=== PATIENT | female | born 1955 | race Caucasian/White ===

== ENCOUNTER 2024-05-18 11:55 | Emergency (ER) | payer MEDICARE, OTHER ==
[2024-05-18 12:05] VITALS: RESP 18; TEMP 97.5
--- NOTE | 2024-05-18 12:21 | ED ---
General Adult HPI - General Chief complaint: Extremity Injury, Lower Stated complaint: Right foot injury Time Seen by Provider: 05/18/24 12:06 Source: patient Mode of arrival: ambulatory Limitations: no limitations - History of Present Illness Initial comments: Dictation was produced using conXt dictation software. please excuse any grammatical, word or spelling errors. Chief Complaint: 68-year-old female presents to the emergency department with a right toe pain History of Present Illness: Patient 68-year-old female presents to the emergency department with right foot pain. Patient states that she has extensive history of what sounds like fungal toe infection. She states that years ago she had her nail on her right great toe turned black. She seen a pacs specialist for it states that her toenail should scroll out. Patient is visiting from [place] where she is staying at a family member's [facility]. The last couple days she has had drainage coming from the medial soft tissue from her right great toe. States that over the last couple days there was some pain to her right toe which spread to the MTP joint. Patient Nuys any fever, chills or night sweats. States that she soaked her toe and there was some drainage of pus. She went to the emergency department in [place] yesterday where she was prescribed Keflex. No imaging or blood work was done at that time. The ROS documented in this emergency department record has been reviewed and confirmed by me. Those systems with pertinent positive or negative responses have been documented in the HPI. All other systems are other negative and/or noncontributory. - Related Data Previous Rx's Medication Instructions Recorded HYDROcodone/APAP 5-325MG [Baring 1 tab PO Q6HR PRN 3 Days #12 tab 05/18/24 5-325] Allergies Allergy/AdvReac Type Severity Reaction Status Date / Time lisinopril Allergy Rash/Hives Verified 05/18/24 12:03 morphine Allergy Itching Verified 05/18/24 12:03 Review of Systems ROS Statement: Those systems with pertinent positive or pertinent negative responses have been documented in the HPI. ROS Other: All systems not noted in ROS Statement are negative. Past Medical History Past Medical History: Asthma, Thyroid Disorder History of Any Multi-Drug Resistant Organisms: None Reported Additional Past Surgical History / Comment(s): lymph edema surgery, Past Psychological History: No Psychological Hx Reported Smoking Status: Never smoker Past Alcohol Use History: Occasional Past Drug Use History: None Reported General Exam - General Exam Comments Initial Comments: General: Well-appearing, nontoxic, no acute distress. Head: Normocephalic, atraumatic Eyes: PERRLA, EOMI ENT: Airway patent Chest: Nonlabored breathing Skin: No visual rash, normal skin tone Neuro: Alert and oriented 3 Musculoskeletal: No gross abnormalities Right foot: Pain and erythema to the right MTP and right toe, fungal hypertrophy of the right great toe nail, no area of fluctuance to the nailbed. No palpatory tenderness to the pad of the right great toe Limitations: no limitations Course Vital Signs 05/18/24 05/18/24 11:57 13:36 Temperature 97.5 F L Pulse Rate 87 15 L Respiratory 18 18 Rate Blood Pressure 133/63 134/68 O2 Sat by Pulse 98 98 Oximetry Medical Decision Making - Medical Decision Making Was pt. sent in by a medical professional or institution (, PA, LINE CLEARANCE FOREMAN, urgent care, hospital, or retirement...) When possible be specific @ -No Did you speak to anyone other than the patient for history (EMS, parent, family, police, friend...)? What history was obtained from this source @ -No Did you review nursing and triage notes (agree or disagree)? Why? @ -I reviewed and agree with nursing and triage notes Were old charts reviewed (outside hosp., previous admission, EMS record, old EKG, old radiological studies, urgent care reports/EKG's, retirement records)? Report findings @ -No old charts were reviewed Differential Diagnosis (chest pain, altered mental status, abdominal pain women, abdominal pain men, vaginal bleeding, musculoskeletal, weakness, fever, dyspnea, syncope, headache, dizziness, GI bleed, back pain, seizure, CVA, palpatations, mental health)? @ -Paronychia, gout, cellulitis EKG interpreted by me (3pts min.). @ -None done X-rays interpreted by me (1pt min.). @ -Pending CT interpreted by me (1pt min.). @ -None done U/S interpreted by me (1pt. min.). @ -None done What testing was considered but not performed or refused? (CT, X-rays, U/S, lab s)? Why? @ -None What meds were considered but not given or refused? Why? @ -None Was smoking cessation discussed for >3mins.? @ -No Were there social determinants of health that impacted care today? How? (Homelessness, low income, unemployed, alcoholism, drug addiction, transportation, low edu. Level, literacy, decrease access to med. care, correction, rehab)? @ -No Was there de-escalation of care discussed even if they declined (Discuss DNR or withdrawal of care, Hospice)? DNR status @ -No What co-morbidities impacted this encounter? (DM, HTN, Smoking, COPD, CAD, Cancer, CVA, ARF, Chemo, Hep., AIDS, mental health diagnosis, sleep apnea, morbid obesity)? @ -None Was patient admitted / discharged? Hospital course, mention meds given and route, prescriptions, significant lab abnormalities, going to OR and other pertinent info. @ -68-year-old female presents emergency department for what she describes as infection of the right MTP and right toe. Vital signs stable. Patient Nuys any constitutional symptoms. Patient has erythematous skin at the area of the right MTP and right toe. Laboratory evaluation obtained. Mild leukocytosis 13.5. Potassium 5.7 with hemolysis. Mild acidosis with a bicarb of 17. CRP is 2.5. There does not appear to be any draining wound. I believe that Keflex is a reasonable antibiotic. Patient given a dose of ceftriaxone. Patient offered observation admission for medical monitoring. She would prefer to be discharged with some pain medications. They will head back to [place] tomorrow and follow-up closely with primary care doctor. Discussed what symptoms should trigger seeking immediate medical attention. They are agreeable with plan. Did you discuss the management of the patient with other professionals (professionals i.e. , PA, [employer] CLEARANCE FOREMAN, lab, RT, psych nurse, transition social worker, pearl stringer, teacher, parking enforcement officer, protective services case worker)? Give summary @ -No Was critical care preformed (if so, how long)? @ -No Undiagnosed new problem with uncertain prognosis? @ -No Drug Therapy requiring intensive monitoring for toxicity (Heparin, Nitro, Insulin, Cardizem)? @ -No Were any procedures done? @ -No Diagnosis/symptom? Acute, or Chronic, or Acute on Chronic? Uncomplicated (without systemic symptoms) or Complicated (systemic symptoms)? @ -Foot cellulitis Side effects of treatment? @ -No Exacerbation, Progression, or Severe Exacerbation? @ -No Poses a threat to life or bodily function? How? (Chest pain, [place], [place], pneumonia, PE, COPD, DKA, ARF, appy, cholecystitis, CVA, Diverticulitis, Homicidal, Suicidal, threat to staff... and all critical care pts) @ -No - Lab Data Result diagrams: 05/18/24 12:52 05/18/24 12:52 Lab Results 05/18/24 05/18/24 Range/Units 12:52 12:52 WBC 13.5 H (3.8-10.6) k/uL RBC 4.94 (3.80-5.40) m/uL Hgb 14.2 (11.4-16.0) gm/dL Hct 47.1 H (34.0-46.0) % MCV 95.4 (80.0-100.0) fL MCH 28.9 (25.0-35.0) pg MCHC 30.3 L (31.0-37.0) g/dL RDW 12.9 (11.5-15.5) % Plt Count 250 (150-450) k/uL MPV 7.7 Neutrophils % 72 % Lymphocytes % 17 % Monocytes % 6 % Eosinophils % 2 % Basophils % 1 % Neutrophils # 9.6 H (1.3-7.7) k/uL Lymphocytes # 2.3 (1.0-4.8) k/uL Monocytes # 0.8 (0-1.0) k/uL Eosinophils # 0.3 (0-0.7) k/uL Basophils # 0.1 (0-0.2) k/uL Sodium 136 L (137-145) mmol/L Potassium 5.7 H (3.5-5.1) mmol/L Chloride 107 (98-107) mmol/L Carbon Dioxide 17 L (22-30) mmol/L Anion Gap 12 mmol/L BUN 19 H (7-17) mg/dL Creatinine 0.51 L (0.52-1.04) mg/dL Est GFR (CKD-EPI)AfAm >90 (>60 ml/min/1.73 sqM) Est GFR (CKD-EPI)NonAf >90 (>60 ml/min/1.73 sqM) Glucose 91 (74-99) mg/dL Calcium 9.1 (8.4-10.2) mg/dL C-Reactive Protein 2.5 H (<1.0) mg/dL Disposition Clinical Impression: Cellulitis of foot Disposition: HOME SELF-CARE Condition: Fair Instructions (If sedation given, give patient instructions): Cellulitis (ED) Prescriptions: HYDROcodone/APAP 5-325MG [Baring 5-325] 1 tab PO Q6HR PRN 3 Days #12 tab PRN Reason: Severe Pain Is patient prescribed a controlled substance at d/c from ED?: Yes If prescribed controlled substance>3 days was MAPS reviewed?: Prescribed <3 Days Referrals: Nonstaff,Physician [Primary Care Provider] - 1-2 days Time of Disposition: 14:24
[2024-05-18] MEDS: KETOROLAC 15 MG/ML 1 ML VIAL IVP STA (12:46)
--- NOTE | 2024-05-18 13:11 | XR ---
EXAMINATION TYPE: XR foot limited RT DATE OF EXAM: 05/18/2024 COMPARISON: None HISTORY: Redness swelling pain. Right foot TECHNIQUE: 3 view right foot FINDINGS: First metatarsophalangeal joint space degenerative changes are present. Soft tissue swellin g over the dorsum of the foot. No acute fractures or dislocations evident. Joint spaces otherwise appear preserved. Follow up exams can be performed 7-10 days from acute trauma for continued pain. IMPRESSION: 1. No acute osseous abnormality right foot. 2. Degenerative joint changes first metatarsophalangeal joint space right foot
[2024-05-18 13:20] LABS: Basophils # (A) 0.1 k/uL (0-0.2); Basophils % (A) 1 %; Eosinophils # (A) 0.3 k/uL (0-0.7); Eosinophils % (A) 2 %; HCT 47.1 % (34.0-46.0); HGB 14.2 gm/dL (11.4-16.0); Lymphocytes # (A) 2.3 k/uL (1.0-4.8); Lymphocytes % (A) 17 %; MCH 28.9 pg (25.0-35.0); MCHC 30.3 g/dL (31.0-37.0); MCV 95.4 fL (80.0-100.0); Mean Platelet Volume 7.7; Monocytes # (A) 0.8 k/uL (0-1.0); Monocytes % (A) 6 %; Neutrophils # (A) 9.6 k/uL (1.3-7.7); Neutrophils % (A) 72 %; Platelet Count 250 k/uL (150-450); RBC 4.94 m/uL (3.80-5.40); RDW 12.9 % (11.5-15.5); WBC 13.5 k/uL (3.8-10.6)
[2024-05-18 13:30] LABS: African American GFR (CKD) >90 (>60 ml/min/1.73 sqM); Anion Gap 12 mmol/L; Blood Urea Nitrogen 19 mg/dL (7-17); C Reactive Protein 2.5 mg/dL (<1.0); Calcium 9.1 mg/dL (8.4-10.2); Carbon Dioxide 17 mmol/L (22-30); Chloride 107 mmol/L (98-107); Glucose 91 mg/dL (74-99); Non-African American GFR(CKD) >90 (>60 ml/min/1.73 sqM); Sodium 136 mmol/L (137-145)
[2024-05-18 13:37] VITALS: BP 134/68; PULSE 15
[2024-05-18] MEDS: HYDROmorphone 1 MG/ML 1 ML SYRINGE IVP STA (13:38)
[2024-05-18 13:41] LABS: Potassium 5.7 mmol/L (3.5-5.1)
[2024-05-18] MEDS: cefTRIAXone IN SWFI 1,000 MG/10 ML SYRINGE IVP STA (14:38)
== END 2024-05-18 14:55 | disposition home or self-care (01) ==
LOC: EC 11:55
DX: L03.031 Cellulitis of right toe (principal); E87.20 Acidosis, unspecified; Z88.5 Allergy status to narcotic agent; Z88.8 Allergy status to other drugs, medicaments and biological substances
CPT/HCPCS: 36415; 80048; 85025; 86140; 73620; 99284; 96374; 96375 ×2; J0696; J1170; J1885